=== PATIENT | male | born 1995 | race African-American/Black ===

== ENCOUNTER 2022-01-29 08:21 | Emergency (ER) | payer SELFPAY ==
[~2022-01-29] VITALS: Ht 172.7 cm; Wt 57.0 kg
[2022-01-29 10:39] LABS: BASOPHILS % 1.2 % (0.0-2.0); EOSINOPHILS % 12.2 % (0.0-5.0); HEMATOCRIT. 41.3 % (42.0-52.0); HEMOGLOBIN. 13.6 g/dL (14.0-18.0); LYMPHOCYTES % 29.9 % (20.0-50.0); MEAN CORPUSCULAR HEMOGLOBIN 30.3 pg (28.0-32.0); MEAN CORPUSCULAR VOLUME 91.6 fL (80.0-94.0); MEAN PLATELET VOLUME 7.5 fl (7.4-10.4); MONOCYTES % 11.1 % (2.0-8.0); NEUTROPHILS % 45.6 % (40.0-76.0); PLATELET 345 x1000/uL (130-400); RED BLOOD CELL COUNT 4.51 mill/uL (4.7-6.1); RED CELL DISTRIBUTION WIDTH 12.9 % (11.6-14.6)
[2022-01-29] MEDS ORDERED: MAGNESIUM/ALUMINUM HYDROXIDE/SIMETHICONE 30ML UDC PO NR (10:42)
[2022-01-29] MEDS: IBUPROFEN 600MG TABLET PO NR ×2 (11:00→12:03)
[2022-01-29 11:04] LABS: CHLORIDE 105 mEq/L (98-107)
[2022-01-29 12:30] LABS: CLARITY URINE CLEAR (CLEAR); COLOR URINE YELLOW (YELLOW); KETONES URINE NEGATIVE (NEGATIVE); LEUKOCYTE ESTERASE URINE 2+ (NEGATIVE); NITRITE URINE NEGATIVE (NEGATIVE); OCCULT BLOOD URINE NEGATIVE (NEGATIVE); PH URINE 7.5 (4.5-8.0); PROTEIN URINE NEGATIVE (NEGATIVE); SPECIFIC GRAVITY URINE 1.021 (1.005-1.030)
[2022-01-29] MEDS ORDERED: AZITHROMYCIN 500 MG TABLET PO NR (13:15)
[2022-01-29] MEDS ORDERED: CEFTRIAXONE SODIUM 500 MG/VIAL IM NR (13:15)
[2022-01-29 14:04] VITALS: BP 124/81
== END 2022-01-29 14:05 | disposition home or self-care (01) ==
LOC: ER 08:21
DX: N39.0 Urinary tract infection, site not specified (principal)
CPT/HCPCS: 36415; 76705; 80053; 81003; 83690; 85025; 87086; 96372; 99284; J0696